=== PATIENT | male | born 1960 | race Caucasian/White ===

== ENCOUNTER 2020-11-11 09:08 | Outpatient (CLI) | payer OTHER, SELFPAY ==
--- NOTE | ~2020-11-11 | CT_ITS ---
EXAMINATION: CT lung screening DATE: 11/11/2020 09:49 INDICATION: Personal history of tobacco dependence, current smoker with 80 pack year history TECHNIQUE: Computed tomography (CT) of the chest was performed without intravenous contrast. The dose -length product (DLP) was 161.37 mGy-cm. 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 COMPARISON: None FINDINGS: There is a 9 mm nodule with central calcification in the left lower lobe on image 67, consi stent with a granuloma. An adjacent 5 mm nodule is present in the left lower lobe on image 70. There is a 3 mm nodule in the right upper lobe. There is no pleural effusion or pneumothorax. There is mild emphysema. No pathologically enlarged thoracic lymph nodes are identified. The heart size is normal. Calcified coronary artery atherosclerosis is noted. There is moderate thoracic spondylosis. IMPRESSION: 1. Lung-RADS category 2: Benign appearance or behavior. Continue annual screening with noncontrast lo w-dose chest CT in 12 months. Reviewed, dictated and finalized at location A. ERATIVE MANAGER IMPRESSION: 1. Lung-RADS category 2: Benign appearance or behavior. Continue annual screeni ng with noncontrast low-dose chest CT in 12 months.
== END 2020-11-11 09:09 | disposition home or self-care (01) ==
PROVIDERS: PCP Family Medicine; Visit Provider Family Medicine
DX: Z12.2 Encounter for screening for malignant neoplasm of respiratory organs (principal); Z87.891 Personal history of nicotine dependence
CPT/HCPCS: 71271

== ENCOUNTER → 2020-12-15 01:29 | Outpatient (CLI) | payer OTHER, SELFPAY ==
[2020-12-15 19:35] LABS: SARS-CoV-2 RNA PCR Positive
== END ==
PROVIDERS: PCP Family Medicine; Visit Provider Internal Medicine Gastroenterology
DX: U07.1 COVID-19 (principal)
CPT/HCPCS: C9803; U0003; U0005

== ENCOUNTER 2020-12-15 08:39 | Emergency (ER) | payer OTHER, SELFPAY ==
--- NOTE | ~2020-12-15 | XR_ITS ---
XR chest 2V DATE: 12/15/2020 09:10 INDICATION: Productive cough for 8 days. Smoker. TECHNIQUE: PA and lateral views COMPARISON: 11/11/2020 CT lung screening 09/28/2019 2 view chest FINDINGS: Normal heart size. No hilar or mediastinal enlargement. No pulmonary infiltrate or consolid ation, pleural effusion or pulmonary vascular congestion or pneumothorax. Mild dextroscoliosis of the thoracic spine. Degenerative spurring of the thoracic and lumbar spine. IMPRESSION: No active cardiopulmonary disease Reviewed, dictated and finalized at location A. WALKER
--- NOTE | 2020-12-15 08:53 | ED.URI ---
HPI - URI/Sore Throat General Chief Complaint: Upper Respiratory Infection Stated Complaint: Cough,Congestion Time Seen by Provider: 12/15/20 08:53 Source: patient, RN notes reviewed and old records reviewed Mode of arrival: ambulatory Limitations: no limitations History of Present Illness HPI Narrative: 60-year-old male presents to [facility] with a cough x8 days. States has been a yellow productive cough. Patient has COPD, history of pneumonia, history of bronchitis. Patient states that he is supposed to have a colonoscopy in a couple of days and would like to make sure that he does not have a pneumonia. Denies fevers. Has had some right-sided rib pain with coughing. Was Covid tested this morning. Related Data Allergies Allergy/AdvReac Type Severity Reaction Status Date / Time No Known Allergies Allergy Mild Verified 12/15/20 08:59 Review of Systems Review of Systems: Narrative: CONSTITUTIONAL: Denies fever, chills, or sweats. EYES: Denies visual changes, redness, or discharge. ENT: Denies rhinorrhea, congestion, sore throat, or otalgia. CARDIOVASCULAR: Denies chest pain, palpitations, or edema. RESPIRATORY: Reports cough or dyspnea. GASTROINTESTINAL: Denies abdominal pain, nausea, vomiting, or diarrhea. GENITOURINARY: Denies dysuria or hematuria. SKIN: Denies rash or itching. MUSCULOSKELETAL: Denies back pain, joint pain, or myalgia. NEUROLOGIC: Denies headache, numbness, or weakness. PSYCHIATRIC: Denies anxiety or depression. All other systems reviewed are negative, except as documented in HPI. [facility] Past Medical History Medical History Dyslipidemia Erectile dysfunction GERD (gastroesophageal reflux disease) Hypogonadism EDIE (obstructive sleep apnea) Prediabetes Sleep apnea Testicular hypofunction Surgical History Surgical History History of esophageal dilatation 2009 Family History Family History Other Carcinoma of colon Family history of coronary artery disease Social History Social History Smoking packs per day: 2 Smoking cigarettes per day: 40.0 Years smoked: 40 Smoking pack-years: 80.00 Smoking status: Heavy tobacco smoker Tobacco type: cigarettes Second hand tobacco smoke exposure: No Alcohol intake: current Drinks per week: 40 Substance use: never Substance use type: does not use Gender identity (if verbalized by the patient): Male Spiritual care concerns: No Comments At the time of my signature, I reviewed and agree with the nursing past medical, surgical, social, and family history. There is no relevant family history pertinent to the patient complaint. Exam Narrative: Exam Narrative: GENERAL: This is a well-nourished, well-developed patient, in no apparent distress. HEAD: normocephalic, atraumatic. EYES: PERRL. Sclera clear/white. Vision is grossly intact. EARS: External ears normal, auditory canals clear and without drainage, TMs normal without perforation. Hearing grossly intact. NOSE: External nose normal with no obvious nasal discharge, nares without redness, no rhinorrhea. THROAT: Mucous membranes moist, posterior pharynx clear. NECK: Neck supple, non-tender without lymphadenopathy, masses or thyromegaly. CARDIOVASCULAR: Regular rate and rhythm without murmurs, gallops, or rubs. RESPIRATORY: Breath sounds equal bilaterally. No wheezes, rales. Right lower rhonchi, After a strong cough. GASTROINTESTINAL: Abdomen soft, non-tender, nondistended. SKIN: warm, intact with no suspicious lesions or rash, good texture and turgor. NEURO: awake, alert, and oriented to person, place and time. There were no obvious focal neurologic abnormalities. EXTREMITIES: No clubbing, cyanosis, or edema. No joint tenderness, effusion, or edema noted. BACK: Nontender without deformity.
[2020-12-15 08:58] VITALS: BP 134/81; PULSE 64; RESP 16; TEMP 36.3; O2SAT 98
== END 2020-12-15 09:36 | disposition home or self-care (01) ==
PROVIDERS: Emergency Provider Nurse Practitioner
DX: J06.9 Acute upper respiratory infection, unspecified (principal); J40 Bronchitis, not specified as acute or chronic; F17.210 Nicotine dependence, cigarettes, uncomplicated; E78.5 Hyperlipidemia, unspecified; K21.9 Gastro-esophageal reflux disease without esophagitis; G47.33 Obstructive sleep apnea (adult) (pediatric); R73.03 Prediabetes
CPT/HCPCS: 71046; 99213; C9803; G0463; U0003; U0005

== ENCOUNTER 2021-01-22 01:24 | Day surgery (SDC) | payer OTHER, SELFPAY ==
[2020-11-21 13:30] VITALS: BMI 29.2
[2021-01-08 10:25] VITALS: BMI 29.3
[2021-01-22 06:26] VITALS: BP 111/82; PULSE 56; RESP 18; TEMP 36.4; O2SAT 96; BMI 29.8
[2021-01-22] MEDS: LACTATED RINGERS 1,000 ML 150 ML IV CONT (06:36)
--- NOTE | 2021-01-22 07:22 | WPDANESEPPF ---
Anes - Initial Pre Proc Eval Procedure: Operation Date: 01/22/21 07:30 Proposed Procedures p Screening Colonoscopy - Eulalio Villavicencio DO Date/Time: 01/22/21 07:22 Surgeon: Eulalio Villavicencio DO Pre Op Diagnosis: Neoplasm Screening Patient Data Age: 60 Gender: M Height: 5 ft 11 in Weight: 97.1 kg Last Vital Signs Temp 97.6 F 01/22/21 06:26 Pulse 56 L 01/22/21 06:26 Resp 18 01/22/21 06:26 BP 111/82 01/22/21 06:26 Pulse Ox 96 01/22/21 06:26 Allergies Allergy/AdvReac Type Severity Reaction Status Date / Time No Known Allergies Allergy Mild Verified 01/22/21 06:25 Home Medications Medication Instructions Recorded Confirmed Type tadalafil 20 mg tablet 20 mg PO DAILY PRN #10 tablet 11/06/20 01/08/21 Rx atorvastatin 20 mg tablet 20 mg PO QPM #90 tablet 11/13/20 01/08/21 Rx albuterol sulfate 2 puff INHALATION QID PRN #6.7 g 12/15/20 01/08/21 Rx Patient hx anesthesia problems: none Family hx anesthesia problems: none PMFSH Past Medical History Medical History Dyslipidemia Erectile dysfunction GERD (gastroesophageal reflux disease) Hypogonadism EDIE (obstructive sleep apnea) Prediabetes Sleep apnea Testicular hypofunction Surgical History Surgical History History of esophageal dilatation 2009 Family History Family History Other Carcinoma of colon Family history of coronary artery disease Social History Social History Smoking packs per day: 2 Smoking cigarettes per day: 40.0 Years smoked: 40 Smoking pack-years: 80.00 Smoking status: Current every day smoker Tobacco type: cigarettes Second hand tobacco smoke exposure: No Alcohol intake: current Drinks per week: 40 Substance use: never Substance use type: does not use Living arrangements: alone Gender identity (if verbalized by the patient): Male Spiritual care concerns: No Anes - Eval Final PreProcedure Day of Procedure 01/22/21 07:22 Patient weight: obese Heart: regular rate and rhythm Lungs: clear to auscultation Airway: Mallampati scale class II Neurological: alert and oriented Last oral intake: >/= 8 hours ASA classification: III Emergent: no Anesthetic plan: proceed Anesthesia type and monitoring: general GIVS and standard monitoring Informed Consent: The patient's anesthetic plan and its attendant risks and benefits were discussed with the patient/family/POA. Questions were solicited and answers provided to the satisfaction of the patient/family/POA.
--- NOTE | 2021-01-22 07:31 | P.CONGI_ITS ---
GI Consult Note Consult date/time: 01/22/21 07:31 HPI: Reason for visit is colonoscopy. This very pleasant gentleman seen in consultation at request the primary physician. Impression: Screening and surveillance colonoscopy. The patient has a history of hyperplastic colon polyps. EGD. HLD. Hypo testosterone is an. EDIE. Pre diabetes. Obesity. GERD. Recommendation: Colonoscopy. History: This very pleasant gentleman has history of reflux disease and hyperp lastic colon polyps. He is here for screening and surveillance colonoscopy. Does complain of occasional dysphagia. He is here for screening colonoscopy. Physical examination: General: very pleasant patient in no acute distress. HEENT: Head was normocephalic sclerae is clear mouth without masses neck was supple. Heart: Rate rhythm regular without S3 or S4. Lungs: CTA. Abdomen: Soft with no guarding or rigidity. Bowel sounds were active. Neurologic: Cranial nerves 2 through 12 intact. No focal defects. No clonus. Musculoskeletal system: Revealed no joint tenderness or swelling no muscle atrophy. Extremities: Reveal no significant edema. Skin: Warm and dry with normal turgor. Mental status: intact. Patient is alert and oriented. Review of Systems Review of Systems: All systems reviewed & are unremarkable except as noted in HPI and below PMFSH Past Medical History Medical History Dyslipidemia Erectile dysfunction GERD (gastroesophageal reflux disease) Hypogonadism EDIE (obstructive sleep apnea) Prediabetes Sleep apnea Testicular hypofunction Surgical History Surgical History History of esophageal dilatation 2009 Family History Family History Other Carcinoma of colon Family history of coronary artery disease Social History Social History Smoking packs per day: 2 Smoking cigarettes per day: 40.0 Years smoked: 40 Smoking pack-years: 80.00 Smoking status: Current every day smoker Tobacco type: cigarettes Second hand tobacco smoke exposure: No Alcohol intake: current Drinks per week: 40 Substance use: never Substance use type: does not use Living arrangements: alone Gender identity (if verbalized by the patient): Male Spiritual care concerns: No Meds Home Medications and Allergies Home Medications Medication Instructions Recorded Confirmed Type tadalafil 20 mg tablet 20 mg PO DAILY PRN #10 tablet 11/06/20 01/08/21 Rx atorvastatin 20 mg tablet 20 mg PO QPM #90 tablet 11/13/20 01/08/21 Rx albuterol sulfate 2 puff INHALATION QID PRN #6.7 g 12/15/20 01/08/21 Rx Allergies Allergy/AdvReac Type Severity Reaction Status Date / Time No Known Allergies Allergy Mild Verified 01/22/21 06:25 Vital Signs Vital Signs - 24 hr 01/22/21 06:26 Temperature 36.4 C Pulse Rate 56 L Respiratory Rate 18 Blood Pressure 111/82 Pulse Oximetry 96
[2021-01-22 07:53] VITALS: BP 104/60; PULSE 52; RESP 13; O2SAT 96
[2021-01-22 08:03] VITALS: BP 109/69; PULSE 54; RESP 13; O2SAT 99
[2021-01-22 08:13] VITALS: BP 124/78; PULSE 52; RESP 13; O2SAT 98
== END 2021-01-22 08:23 | disposition home or self-care (01) ==
PROVIDERS: Visit Provider Internal Medicine Gastroenterology
PROC: 0DJD8ZZ Inspection of Lower Intestinal Tract, Via Natural or Artificial Opening Endoscopic (ICD-10-PCS; CPT 45378; principal; 2021-01-22 07:30)
DX: Z12.11 Encounter for screening for malignant neoplasm of colon (principal); K63.5 Polyp of colon; K64.8 Other hemorrhoids; E78.5 Hyperlipidemia, unspecified; G47.33 Obstructive sleep apnea (adult) (pediatric); R73.03 Prediabetes; K21.9 Gastro-esophageal reflux disease without esophagitis; E29.1 Testicular hypofunction; E66.9 Obesity, unspecified; Z68.29 Body mass index [BMI] 29.0-29.9, adult; F17.210 Nicotine dependence, cigarettes, uncomplicated
CPT/HCPCS: 45380; 88305; J2704; J7120

== ENCOUNTER → 2021-03-16 01:19 | Outpatient (CLI) | payer OTHER, SELFPAY ==
[2021-03-16 18:48] LABS: SARS-CoV-2 RNA PCR Negative
== END ==
PROVIDERS: PCP Family Medicine; Visit Provider Internal Medicine Gastroenterology
DX: Z01.812 Encounter for preprocedural laboratory examination (principal); Z20.822 Contact with and (suspected) exposure to COVID-19
CPT/HCPCS: C9803; U0003; U0005

== ENCOUNTER 2021-03-19 01:17 | Day surgery (SDC) | payer OTHER, SELFPAY ==
[2021-03-11 15:24] VITALS: BMI 30.7
[2021-03-19] MEDS: LACTATED RINGERS 1,000 ML 150 ML IV CONT (07:57)
[2021-03-19 07:59] VITALS: BP 119/69; PULSE 55; RESP 18; TEMP 35.9; O2SAT 98; BMI 30.7
--- NOTE | 2021-03-19 08:42 | P.PNAN_ITS ---
Anes - Initial Pre Proc Eval Procedure: Operation Date: 03/19/21 09:00 Proposed Procedures p Esophagogastroduodenoscopy - Eulalio Villavicencio DO Date/Time: 03/19/21 08:42 Surgeon: Eulalio Villavicencio DO Pre Op Diagnosis: gerd, dysphagia Patient Data Age: 61 Gender: M Height: 5 ft 11 in Weight: 100 kg Last Vital Signs Temp 96.6 F L 03/19/21 07:59 Pulse 55 L 03/19/21 07:59 Resp 18 03/19/21 07:59 BP 119/69 03/19/21 07:59 Pulse Ox 98 03/19/21 07:59 Allergies Allergy/AdvReac Type Severity Reaction Status Date / Time No Known Allergies Allergy Mild Verified 03/19/21 07:58 Home Medications Medication Instructions Recorded Confirmed Type tadalafil 20 mg tablet 20 mg PO DAILY PRN #10 tablet 11/06/20 03/11/21 Rx atorvastatin 20 mg tablet 20 mg PO QPM #90 tablet 11/13/20 03/11/21 Rx albuterol sulfate 2 puff INHALATION QID PRN #6.7 g 12/15/20 03/11/21 Rx Patient hx anesthesia problems: none Family hx anesthesia problems: none PMFSH Past Medical History Medical History Dyslipidemia Erectile dysfunction GERD (gastroesophageal reflux disease) Hypogonadism EDIE (obstructive sleep apnea) Prediabetes Sleep apnea Testicular hypofunction Surgical History Surgical History History of esophageal dilatation 2009 Family History Family History Other Carcinoma of colon Family history of coronary artery disease Social History Social History Smoking packs per day: 2 Smoking cigarettes per day: 40.0 Years smoked: 40 Smoking pack-years: 80.00 Smoking status: Current every day smoker Tobacco type: cigarettes Second hand tobacco smoke exposure: No Alcohol intake: current Drinks per week: 12 Substance use: never Substance use type: does not use Living arrangements: with family Gender identity (if verbalized by the patient): Male Spiritual care concerns: No Anes - Eval Final PreProcedure Day of Procedure 03/19/21 08:42 Patient weight: obese Heart: regular rate and rhythm Lungs: clear to auscultation Airway: Mallampati scale class III Neurological: alert and oriented Last oral intake: >/= 8 hours ASA classification: III Emergent: no Anesthetic plan: proceed Anesthesia type and monitoring: general GIVS and standard monitoring Informed Consent: The patient's anesthetic plan and its attendant risks and b enefits were discussed with the patient/family/POA. Questions were solicited and answers provided to the satisfaction of the patient/family/POA.
--- NOTE | 2021-03-19 08:48 | WPDGICN ---
GI Consult Note Consult date/time: 03/19/21 08:48 HPI: Reason for visit is EGD. This very pleasant gentleman seen consultation request of the family physician. Impression: GERD with dysphagia. Evaluate for underlying ring or stricture. may consider eosinophilic esophagitis. HLD. EDIE. COPD. Tobacco abuse. Hypogonadism. EGD. Recommendation: EGD. Patient due for colonoscopy. History: This very pleasant gentleman is history reflux disease. Previous biopsies revealed possibly eosinophilic esophagitis. Patient's denies any further indigestion, heartburn, nausea, vomiting or hematemesis. He is having recurrent dysphagia to solid foods. NSAID use is denied. Hematochezia, melena Andacholic stools are denied. Physical examination: General: very pleasant patient in no acute distress. HEENT: Head was normocephalic sclerae is clear mouth without masses neck was supple. Heart: Rate rhythm regular without S3 or S4. Lungs: Decreased breath sounds bilaterally. Abdomen: Soft with no guarding or rigidity. Bowel sounds were active. Neurologic: Cranial nerves 2 through 12 intact. No focal defects. No clonus. Musculoskeletal system: Revealed no joint tenderness or swelling no muscle atrophy. Extremities: Reveal no significant edema. Skin: Warm and dry with normal turgor. Mental status: intact. Patient is alert and oriented. Review of Systems Review of Systems: All systems reviewed & are unremarkable except as noted in HPI and below PMFSH Past Medical History Medical History Dyslipidemia Erectile dysfunction GERD (gastroesophageal reflux disease) Hypogonadism EDIE (obstructive sleep apnea) Prediabetes Sleep apnea Testicular hypofunction Surgical History Surgical History History of esophageal dilatation 2009 Family History Family History Other Carcinoma of colon Family history of coronary artery disease Social History Social History Smoking packs per day: 2 Smoking cigarettes per day: 40.0 Years smoked: 40 Smoking pack-years: 80.00 Smoking status: Current every day smoker Tobacco type: cigarettes Second hand tobacco smoke exposure: No Alcohol intake: current Drinks per week: 12 Substance use: never Substance use type: does not use Living arrangements: with family Gender identity (if verbalized by the patient): Male Spiritual care concerns: No Meds Home Medications and Allergies Home Medications Medication Instructions Recorded Confirmed Type tadalafil 20 mg tablet 20 mg PO DAILY PRN #10 tablet 11/06/20 03/11/21 Rx atorvastatin 20 mg tablet 20 mg PO QPM #90 tablet 11/13/20 03/11/21 Rx albuterol sulfate 2 puff INHALATION QID PRN #6.7 g 12/15/20 03/11/21 Rx Allergies Allergy/AdvReac Type Severity Reaction Status Date / Time No Known Allergies Allergy Mild Verified 03/19/21 07:58 Vital Signs Vital Signs - 24 hr 03/19/21 07:59 Temperature 35.9 C L Pulse Rate 55 L Respiratory Rate 18 Blood Pressure 119/69 Pulse Oximetry 98
[2021-03-19 10:09] VITALS: BP 115/72; PULSE 45; RESP 19; O2SAT 98
[2021-03-19 10:19] VITALS: BP 102/79; PULSE 47; RESP 18; O2SAT 100
[2021-03-19 10:27] VITALS: BP 156/73; PULSE 56; RESP 19; O2SAT 100
== END 2021-03-19 10:45 | disposition home or self-care (01) ==
PROVIDERS: PCP Family Medicine; Visit Provider Internal Medicine Gastroenterology
PROC: 0DJ08ZZ Inspection of Upper Intestinal Tract, Via Natural or Artificial Opening Endoscopic (ICD-10-PCS; CPT 43235; principal; 2021-03-19 09:00)
DX: K21.00 Gastro-esophageal reflux disease with esophagitis, without bleeding (principal); K22.2 Esophageal obstruction; K29.50 Unspecified chronic gastritis without bleeding; E78.5 Hyperlipidemia, unspecified; G47.33 Obstructive sleep apnea (adult) (pediatric); J44.9 Chronic obstructive pulmonary disease, unspecified; R73.03 Prediabetes; F17.210 Nicotine dependence, cigarettes, uncomplicated; Z79.51 Long term (current) use of inhaled steroids
CPT/HCPCS: 43239; 43249; 87081; 88305; 88313; C1726; C9803; J2704; J7120; U0003; U0005

== ENCOUNTER → 2021-03-30 01:40 | Outpatient (CLI) | payer OTHER, SELFPAY ==
[2021-03-30 17:04] LABS: SARS-CoV-2 RNA PCR Negative
== END ==
PROVIDERS: PCP Family Medicine; Visit Provider Internal Medicine Gastroenterology
DX: Z01.812 Encounter for preprocedural laboratory examination (principal); Z20.822 Contact with and (suspected) exposure to COVID-19
CPT/HCPCS: C9803; U0003; U0005

== ENCOUNTER 2021-04-02 01:49 | Day surgery (SDC) | payer OTHER, SELFPAY ==
[2021-03-27 12:52] VITALS: BMI 30.7
[2021-04-02 11:39] VITALS: BP 118/56; PULSE 57; RESP 18; TEMP 36.2; O2SAT 97; BMI 30.7
[2021-04-02] MEDS: LACTATED RINGERS 1,000 ML 150 ML IV CONT (11:46)
--- NOTE | 2021-04-02 12:27 | WPDANESEPPF ---
Anes - Initial Pre Proc Eval Procedure: Operation Date: 04/02/21 13:00 Proposed Procedures p Esophagogastroduodenoscopy - Eulalio Villavicencio DO Date/Time: 04/02/21 12:27 Surgeon: Eulalio Villavicencio DO Pre Op Diagnosis: esophageal stricture Patient Data Age: 61 Gender: M Height: 5 ft 11 in Weight: 99.8 kg Last Vital Signs Temp 97.1 F L 04/02/21 11:39 Pulse 57 L 04/02/21 11:39 Resp 18 04/02/21 11:39 BP 118/56 L 04/02/21 11:39 Pulse Ox 97 04/02/21 11:39 Allergies Allergy/AdvReac Type Severity Reaction Status Date / Time No Known Allergies Allergy Mild Verified 04/02/21 11:38 Home Medications Medication Instructions Recorded Confirmed Type omeprazole 40 mg PO DAILY 03/27/21 03/27/21 History Patient hx anesthesia problems: none Family hx anesthesia problems: none PMFSH Past Medical History Medical History Dyslipidemia Erectile dysfunction GERD (gastroesophageal reflux disease) Hypogonadism EDIE (obstructive sleep apnea) Prediabetes Sleep apnea Testicular hypofunction Surgical History Surgical History History of esophageal dilatation 2009 Family History Family History Other Carcinoma of colon Family history of coronary artery disease Social History Social History Smoking packs per day: 2 Smoking cigarettes per day: 40.0 Years smoked: 40 Smoking pack-years: 80.00 Smoking status: Current every day smoker Tobacco type: cigarettes Second hand tobacco smoke exposure: No Alcohol intake: current Drinks per week: 12 Substance use: never Substance use type: does not use Living arrangements: with family Gender identity (if verbalized by the patient): Male Spiritual care concerns: No Anes - Eval Final PreProcedure Day of Procedure 04/02/21 12:27 Patient weight: obese Heart: regular rate and rhythm Lungs: clear to auscultation Airway: Mallampati scale class II Neurological: alert and oriented Last oral intake: >/= 8 hours ASA classification: III Emergent: no Anesthetic plan: proceed Anesthesia type and monitoring: general GIVS and standard monitoring Informed Consent: The patient's anesthetic plan and its attendant risks and benefits were discussed with the patient/family/POA. Questions were solicited and answers provided to the satisfaction of the patient/family/POA.
--- NOTE | 2021-04-02 12:49 | WPDHPUPDATE1 ---
History and Physical Update Update Date/Time: 04/02/21 12:49 History and Physical has been reviewed, including an updated exam of the patient. There are NO changes in the patient's condition. Risks, benefits, and alternatives have been discussed and questions answered. Patient agrees to proceed with procedure.
[2021-04-02 13:05] VITALS: BP 127/75; PULSE 62; RESP 16; O2SAT 96
[2021-04-02 13:15] VITALS: BP 137/80; PULSE 61; RESP 24; O2SAT 96
[2021-04-02 13:25] VITALS: BP 130/87; PULSE 53; RESP 25; O2SAT 98
== END 2021-04-02 13:30 | disposition home or self-care (01) ==
PROVIDERS: PCP Family Medicine; Visit Provider Internal Medicine Gastroenterology
PROC: 0DJ08ZZ Inspection of Upper Intestinal Tract, Via Natural or Artificial Opening Endoscopic (ICD-10-PCS; CPT 43235; principal; 2021-04-02 13:00)
DX: K22.2 Esophageal obstruction (principal); Z87.11 Personal history of peptic ulcer disease; K21.9 Gastro-esophageal reflux disease without esophagitis; E78.5 Hyperlipidemia, unspecified; G47.33 Obstructive sleep apnea (adult) (pediatric); R73.03 Prediabetes; F17.210 Nicotine dependence, cigarettes, uncomplicated; E66.9 Obesity, unspecified; Z68.30 Body mass index [BMI] 30.0-30.9, adult
CPT/HCPCS: 43249; C1726; C9803; J2704; J7120; U0003; U0005

== ENCOUNTER 2021-07-25 08:02 | Emergency (ER) | payer OTHER, SELFPAY ==
--- NOTE | ~2021-07-25 | XR_ITS ---
EXAMINATION: XR chest 2V EXAM DATE: 07/25/2021 08:58 INDICATION: Prod cough x 3 days. TECHNIQUE: Frontal and lateral projections of the chest obtained and reviewed. Comparison is made to prior examination from 12/15/2020. FINDINGS: The lungs are clear. There are no pleural effusions. The cardiomediastinal silhouette is within normal limits. There is no pneumothorax suspected. The bones and soft tissues are unremarkab le. IMPRESSION: No acute cardiopulmonary findings. Reviewed, dictated and finalized at location A.
--- NOTE | 2021-07-25 08:04 | ED.GENADULT ---
HPI - General Adult General Chief complaint: Upper Respiratory Infection Stated complaint: cough Time Seen by Provider: 07/25/21 08:04 Source: patient Mode of arrival: ambulatory Limitations: no limitations History of Present Illness HPI narrative: 61-year-old male patient presents to the [facility] with complaints of a cough, shortness of breath, fatigue and some chest pain for the past 3 days. Patient states that he is not vaccinated against Covid. Patient states he was diagnosed with COVID-19 in December 2019. Patient states he has not been to the doctor in a couple of years. Patient is an active smoker. Denies being around anybody with Covid that he is aware of. Patient states he has been taking [id number] Mucinex for his symptoms. Denies getting a flu shot yet this year. Patient states he typically does not get flu shots. Related Data Allergies Allergy/AdvReac Type Severity Reaction Status Date / Time No Known Allergies Allergy Mild Verified 07/25/21 08:23 Review of Systems Review of Systems: CONSTITUTIONAL: Denies fever, chills, or sweats. EYES: Denies visual changes, redness, or discharge. ENT: Denies rhinorrhea, congestion, sore throat, or otalgia. CARDIOVASCULAR: Positive chest pain, denies palpitations, or edema. RESPIRATORY: Positive productive cough with dyspnea. GASTROINTESTINAL: Denies abdominal pain, nausea, vomiting, or diarrhea. GENITOURINARY: Denies dysuria or hematuria. SKIN: Denies rash or itching. MUSCULOSKELETAL: Denies back pain, joint pain, or myalgia. NEUROLOGIC: Denies headache, numbness, or weakness. PSYCHIATRIC: Denies anxiety or depression. [facility] Past Medical History Medical History (Updated 07/25/21 @ 09:10 by SHORTY Sage) COVID-19 virus infection December 2019 Dyslipidemia Erectile dysfunction GERD (gastroesophageal reflux disease) Hypogonadism EDIE (obstructive sleep apnea) Prediabetes Sleep apnea Testicular hypofunction Surgical History Surgical History History of esophageal dilatation 2009 Family History Family History Other Carcinoma of colon Family history of coronary artery disease Social History Social History Smoking packs per day: 2 Smoking cigarettes per day: 40.0 Years smoked: 40 Smoking pack-years: 80.00 Smoking status: Current every day smoker Tobacco type: cigarettes Second hand tobacco smoke exposure: No Alcohol intake: current Drinks per week: 12 Alcohol use details: 8-10 beers a week Substance use: never Substance use type: does not use Gender identity (if verbalized by the patient): Male Spiritual care concerns: No Comments At the time of my signature I agree with nursing past medical history, surgical, social, and family history. There is no relevant family history pertinent to the presenting complaint. Exam Narrative: GENERAL: Well-appearing, well-nourished, and in no acute distress. HEAD: Normocephalic, atraumatic. EYES: PERRLA and EOMI. ENT: Nares clear, no rhinorrhea or epistaxis. Mucous membranes moist. NECK: Supple. No lymphadenopathy CHEST: Clear to auscultation. No respiratory distress. HEART: Regular rate and rhythm. No murmur heard. Normal peripheral pulses. ABDOMEN: Soft, nontender, nondistended, normal active bowel sounds. EXTREMITIES: Normal range of motion. No edema. SKIN: Warm, dry, no rash. NEURO: No focal deficits. Alert and oriented x3. Course Reevaluation(s) Reevaluation #1: Reviewed plan of care with patient. Discussed with patient that flu and COVID were negative and chest x-ray and ECG was negative. Discussed with patient that we will go ahead and discharge him home with an inhaler, oral steroids and a daily antihistamine to help with the coughing and chest pain. Discussed with patient if his symptoms get continuingly
[2021-07-25 08:10] VITALS: BP 122/81; PULSE 58; RESP 16; TEMP 36.8; O2SAT 99
--- NOTE | 2021-07-25 08:32 | ECG_ITS ---
Measurements Intervals [place] Rate: 51 P: 69 WV: 171 QRS: 59 QRSD: 98 T: 61 QT: 414 QTc: 382 Interpretive Statements SINUS BRADYCARDIA INCOMPLETE RIGHT BUNDLE BRANCH BLOCK BORDERLINE ECG Electronically Signed On 07-25-2021 14:15:05 CDT by Dell Macias D.O.
== END 2021-07-25 09:23 | disposition home or self-care (01) ==
PROVIDERS: Emergency Provider Nurse Practitioner Family
DX: J06.9 Acute upper respiratory infection, unspecified (principal); F17.210 Nicotine dependence, cigarettes, uncomplicated; Z20.822 Contact with and (suspected) exposure to COVID-19
CPT/HCPCS: 71046; 87426; 87804; 93005; 99213; C9803; G0463

== ENCOUNTER 2021-11-02 09:56 | Emergency (ER) | payer OTHER, SELFPAY ==
[2021-11-02 10:05] VITALS: BP 131/70; PULSE 73; RESP 16; TEMP 36.6; O2SAT 100
--- NOTE | 2021-11-02 10:41 | ED.URI ---
HPI - URI/Sore Throat General Chief Complaint: Upper Respiratory Infection Stated Complaint: Fever,Aches Time Seen by Provider: 11/02/21 10:41 Source: patient, RN notes reviewed and old records reviewed Mode of arrival: ambulatory Limitations: no limitations History of Present Illness HPI Narrative: 61-year-old male presents to the [facility] with body aches, chills and has felt feverish since waking up yesterday morning. Patient is not flu nor Covid vaccinated. Related Data Home Medications Medication Instructions Recorded Confirmed No Home Medications 11/02/21 11/02/21 Allergies Allergy/AdvReac Type Severity Reaction Status Date / Time No Known Allergies Allergy Mild Verified 07/25/21 08:23 Review of Systems Review of Systems: All systems reviewed & are unremarkable except as noted in HPI and below Constitutional: Constitutional: Reports as per HPI, Reports chills, Reports fatigue and Reports fever(s) Eyes: Eyes: Reports no additional eye complaints ENT: Reports system reviewed and no additional complaints, except as documented Cardiovascular: Cardiovascular: Reports no additional cardiovascular complaints and Denies chest pain Respiratory: Respiratory: Reports as per HPI and Reports cough Gastrointestinal: Gastrointestinal: Reports no additional gastrointestinal complaints, Denies abdominal pain, Denies nausea and Denies vomiting Genitourinary: Genitourinary: Reports no additional male genitourinary complaints Musculoskeletal: Musculoskeletal: Reports no additional musculoskeletal complaints Integumentary/Breasts: Skin/Breast: Reports system reviewed and no additional complaints, except as docu Neurologic: Reports system reviewed and no additional complaints, except as documented Psychiatric: Psychiatric: Reports no additional psychiatric complaints Allergic/Immunologic: Allergic/Immunologic: Reports no additional allergic/immunologic complaints [facility] Past Medical History Medical History COVID-19 virus infection December 2019 Dyslipidemia Erectile dysfunction GERD (gastroesophageal reflux disease) Hypogonadism EDIE (obstructive sleep apnea) Prediabetes Sleep apnea Testicular hypofunction Surgical History Surgical History History of esophageal dilatation 2009 Family History Family History Other Carcinoma of colon Family history of coronary artery disease Social History Social History Smoking packs per day: 2 Smoking cigarettes per day: 40.0 Years smoked: 40 Smoking pack-years: 80.00 Smoking status: Current every day smoker Tobacco type: cigarettes Second hand tobacco smoke exposure: No Alcohol intake: current Drinks per week: 12 Alcohol use details: 8-10 beers a week Substance use: never Substance use type: does not use Gender identity (if verbalized by the patient): Male Spiritual care concerns: No Comments At the time of my signature, I reviewed and agree with the nursing past medical, surgical, social, and family history. There is no relevant family history pertinent to the patient complaint. Exam Const: General: healthy appearing, no acute distress and alert Nutritional Appearance: well nourished Orientation/consciousness: patient oriented x3 Limitations: no limitations HENMT: Head: normal to inspection Ears: external ears normal, TM's normal bilaterally and EAC's normal Eyes: Conjunctivae: conjunctivae normal Pupils: Equal, round and reactive pupils present Neck: Neck: normal visual inspection, no lymphadenopathy and no meningeal signs Chest: Chest palpation & inspection: normal inspection of the chest Resp: Effort & Inspection: normal respiratory effort Auscultation: diminished lung sounds (With coarseness throughout) bilateral in the
== END 2021-11-02 11:13 | disposition home or self-care (01) ==
PROVIDERS: Emergency Provider Nurse Practitioner
DX: B34.9 Viral infection, unspecified (principal); Z20.822 Contact with and (suspected) exposure to COVID-19; F17.210 Nicotine dependence, cigarettes, uncomplicated; Z86.16 Personal history of COVID-19; E78.5 Hyperlipidemia, unspecified; K21.9 Gastro-esophageal reflux disease without esophagitis; G47.33 Obstructive sleep apnea (adult) (pediatric); R73.03 Prediabetes; G47.30 Sleep apnea, unspecified
CPT/HCPCS: 87804; 99213; G0463

== ENCOUNTER → 2021-11-03 10:00 | Outpatient (CLI) | payer OTHER, SELFPAY ==
[2021-11-03 20:10] LABS: SARS-CoV-2 RNA PCR Positive
== END ==
PROVIDERS: Visit Provider Nurse Practitioner
DX: U07.1 COVID-19 (principal)
CPT/HCPCS: C9803; U0003; U0005

== ENCOUNTER 2022-03-12 09:57 | Outpatient (CLI) | payer OTHER, SELFPAY ==
--- NOTE | ~2022-03-12 | CT_ITS ---
EXAMINATION: CT lung screening DATE: 03/12/2022 10:19 INDICATION: Personal history of nicotine dependence, current smoker with 44 pack year history TECHNIQUE: Computed tomography (CT) of the chest was performed without intravenous contrast. The dose -length product (DLP) was 190.30 mGy-cm. Automated exposure control and iterative reconstruction tech [employer] were employed. COMPARISON: 11/11/2020 FINDINGS: There is a 3 mm nodule of the right upper lobe. There is mild emphysema. A calcified nodule of the left lower lobe and an adjacent 5 mm nodule are stable. No new pulmonary nodules are identifi ed. The lungs are free of acute opacities. There is no pleural effusion or pneumothorax. No pathologi cody enlarged thoracic lymph nodes are identified. The heart size is normal. Calcified coronary da ry atherosclerosis is noted. There is moderate thoracic spondylosis. Two IMPRESSION: 1. Lung-RADS category 2: Benign appearance or behavior. Continue annual screening with noncontrast lo w-dose chest CT in 12 months. Reviewed, dictated and finalized at location A. IMPRESSION: 1. Lung-RADS category 2: Benign appearance or behavior. Continue annual screeni ng with noncontrast low-dose chest CT in 12 months.
== END 2022-03-12 09:58 | disposition home or self-care (01) ==
PROVIDERS: PCP Family Medicine; Visit Provider Family Medicine
DX: Z12.2 Encounter for screening for malignant neoplasm of respiratory organs (principal)
CPT/HCPCS: 71271

== ENCOUNTER 2022-10-05 13:10 | Outpatient (CLI) | payer OTHER, SELFPAY ==
--- NOTE | ~2022-10-05 | CT_ITS ---
EXAMINATION: CT lung screening DATE: 10/05/2022 13:32 INDICATION: Personal history of tobacco dependence TECHNIQUE: Computed tomography (CT) of the chest was performed without intravenous contrast. The dose -length product was 162.68 mGy-cm. Automated exposure control and iterative reconstruction technique were employed. COMPARISON: CT dated 03/12/2022 FINDINGS: No thoracic lymphadenopathy. No significant pleural or pericardial effusion. There is ather osclerosis of the aorta and coronary arteries. The upper abdomen is unremarkable. There is a nonsolid nodule in the right upper lobe measuring 9 mm. There is a calcified granuloma in the left lower lobe , unchanged. There is a stable 4 mm left lower lobe nodule. No endobronchial lesions. No acute osseou s abnormality. Moderate thoracic spondylosis. IMPRESSION: 1. Lung-RADS category 2: Benign appearance or behavior. Continue annual screening with noncontrast lo w-dose chest CT in 12 months. Reviewed, dictated and finalized at location A. NO SHIFT MANAGER IMPRESSION: 1. Lung-RADS category 2: Benign appearance or behavior. Continue annual screeni ng with noncontrast low-dose chest CT in 12 months.
== END 2022-10-05 13:11 | disposition home or self-care (01) ==
PROVIDERS: PCP Family Medicine; Visit Provider Family Medicine
DX: Z12.2 Encounter for screening for malignant neoplasm of respiratory organs (principal); F17.210 Nicotine dependence, cigarettes, uncomplicated
CPT/HCPCS: 71271

== ENCOUNTER 2022-10-29 08:38 | Emergency (ER) | payer OTHER, SELFPAY ==
--- NOTE | ~2022-10-29 | XR_ITS ---
EXAMINATION: XR chest 2V DATE: 10/29/2022 09:31 INDICATION: Productive cough TECHNIQUE: Frontal and lateral views of the chest are obtained COMPARISON: 07/25/2021 FINDINGS: The lungs are free of acute opacities. No pleural effusion or pneumothorax. The cardiomedia stinal silhouette is normal. There is moderate thoracic spondylosis. IMPRESSION: 1. No acute cardiopulmonary abnormality. Reviewed, dictated and finalized at location B. ICIAN ANESTHESIOLOGIST
[2022-10-29 08:50] VITALS: BP 123/64; PULSE 67; RESP 16; TEMP 35.6; O2SAT 98
--- NOTE | 2022-10-29 09:09 | ED.URI ---
HPI - URI/Sore Throat General Chief Complaint: Upper Respiratory Infection Stated Complaint: Cough Time Seen by Provider: 10/29/22 09:09 Source: patient Mode of arrival: ambulatory Limitations: no limitations History of Present Illness HPI Narrative: 62-year-old male presents with complaint of cough, chest congestion for 2 weeks. Reports shortness of breath with exertion. Hot and cold chills starting yesterday. Denies nausea vomiting diarrhea. Is using [id number] cough medications to treat his symptoms. Is concerned for pneumonia. All systems reviewed and negative except as noted above. Related Data Allergies Allergy/AdvReac Type Severity Reaction Status Date / Time No Known Allergies Allergy Mild Verified 10/29/22 08:40 Review of Systems Review of Systems: CONSTITUTIONAL: Denies fever. Reports chills, or sweats. EYES: Denies visual changes, redness, or discharge. ENT: Denies rhinorrhea, congestion, sore throat, or otalgia. CARDIOVASCULAR: Denies chest pain, palpitations, or edema. RESPIRATORY: Reports cough, chest congestion and dyspnea with exertion. GASTROINTESTINAL: Denies abdominal pain, nausea, vomiting, or diarrhea. GENITOURINARY: Denies dysuria or hematuria. SKIN: Denies rash or itching. MUSCULOSKELETAL: Denies back pain, joint pain, or myalgia. NEUROLOGIC: Denies headache, numbness, or weakness. PSYCHIATRIC: Denies anxiety or depression. All other systems reviewed are negative, except as documented in HPI. [facility] Past Medical History Medical History BPH (benign prostatic hyperplasia) COVID-19 virus infection December 2019 Dyslipidemia Erectile dysfunction GERD (gastroesophageal reflux disease) Hypogonadism EDIE (obstructive sleep apnea) Prediabetes Sleep apnea Testicular hypofunction Vitamin D deficiency Surgical History Surgical History History of esophageal dilatation 2009 Family History Family History Other Carcinoma of colon Family history of coronary artery disease Social History Social History Smoking packs per day: 1 Smoking cigarettes per day: 20.0 Years smoked: 44 Smoking pack-years: 44.00 Smoking status: Current every day smoker Tobacco type: cigarettes Second hand tobacco smoke exposure: No Alcohol intake: current Drinks per week: 12 Alcohol use details: 8-10 beers a week Substance use: never Substance use type: does not use Lack of Transportation: No Lack of Food: Never True Current Housing: I Have Housing Concerned About Future Housing: No Difficulty Paying Gas/Electric Bills: No Difficulty Paying for Meds: No Currently Unemployed: No Education: High School Diploma/GED Difficulty w/ Childcare or Family Care: No Additional occupation/education comments: Self-Employed Gender identity (if verbalized by the patient): Male Spiritual care concerns: No Agree to blood products: Yes Comments At time of signature, agree with nursing past medical, surgical, social and family history. There is no relevant family history pertinent to the presenting complaint. Exam Narrative: GENERAL: This is a well-nourished, well-developed patient, in no apparent distress. HEAD: normocephalic, atraumatic. EYES: PERRL. Sclera clear/white. Vision is grossly intact. EARS: External ears normal, auditory canals clear and without drainage, TMs normal without perforation. Hearing grossly intact. NOSE: External nose normal with no obvious nasal discharge, nares without redness, no rhinorrhea. THROAT: Mucous membranes moist, posterior pharynx clear. NECK: Neck supple, non-tender without lymphadenopathy, masses or thyromegaly. CARDIOVASCULAR: Regular rate and rhythm without murmurs, gallops, or rubs. RESPIRATORY: decreas
== END 2022-10-29 09:51 | disposition home or self-care (01) ==
PROVIDERS: Emergency Provider Nurse Practitioner Family; PCP Family Medicine
DX: J20.9 Acute bronchitis, unspecified (principal); Z20.822 Contact with and (suspected) exposure to COVID-19; F17.210 Nicotine dependence, cigarettes, uncomplicated; N40.0 Benign prostatic hyperplasia without lower urinary tract symptoms; E78.5 Hyperlipidemia, unspecified; K21.9 Gastro-esophageal reflux disease without esophagitis; R73.03 Prediabetes; Z86.16 Personal history of COVID-19
CPT/HCPCS: 71046; 87426; 87804; 99213; C9803; G0463

== ENCOUNTER 2023-09-04 08:02 | Emergency (ER) | payer OTHER, SELFPAY ==
--- NOTE | ~2023-09-04 | XR_ITS ---
EXAMINATION: XR chest 2V DATE: 09/04/2023 08:26 INDICATION: Chest pain, productive cough TECHNIQUE: PA and lateral views of the chest are obtained. COMPARISON: 10/29/2022 FINDINGS: There are minimal airspace opacities in the left midlung zone. No pleural effusion or pneum othorax. The cardiomediastinal silhouette is normal. There is moderate thoracic spondylosis. IMPRESSION: 1. Minimal airspace opacities of the left midlung zone which may reflect pneumonia. Recommend appropr iate clinical therapy. Finding can be followed up at the time of lung cancer screening CT which is du e in one month. Reviewed, dictated and finalized at location F. Y LEVEL ACCOUNTING CLERK IMPRESSION: 1. Minimal airspace opacities of the left midlung zone which may reflect pneumo gentry. Recommend appropriate clinical therapy. Finding can be followed up at the time of lung cancer screening CT which is due in one month.
--- NOTE | 2023-09-04 08:05 | ED.URI ---
HPI - URI/Sore Throat General Chief Complaint: Upper Respiratory Infection Stated Complaint: cough, lungs hurt Time Seen by Provider: 09/04/23 08:04 Source: patient Mode of arrival: ambulatory Limitations: no limitations History of Present Illness HPI Narrative: Mr. Huerta is a 63-year-old male patient presenting to the clinic today with complaints of cough, scratchy throat, nasal congestion, and stating his lungs hurt x2 days. He was previously outside smoking a cigarette prior to coming into the clinic today. At least a 2 pack-a-day times 45 year smoking history. History of COPD. Cough is productive at times-starting to bring up some green phlegm. He denies any fever but has had some chills. MD elicited complaint: sore throat and nasal congestion Related Data Home Medications Medication Instructions Recorded Confirmed testosterone enanthate 75 mg/0.5 75 mg subcut WEEKLY 01/31/23 01/31/23 mL subcutaneous auto-injector (Xyosted) cholecalciferol (vitamin D3) 50 2,000 unit PO DAILY 02/08/23 mcg (2,000 unit) capsule Allergies Allergy/AdvReac Type Severity Reaction Status Date / Time No Known Allergies Allergy Mild Verified 09/04/23 08:06 Review of Systems Review of Systems: Pertinent positives per HPI. Patient denies any fever, chills, rash, headache, visual changes, dizziness, chest pain, palpitations, nausea, vomiting, diarrhea, constipation, abdominal pain, or any urinary issues. [facility] Past Medical History Medical History BPH (benign prostatic hyperplasia) COVID-19 virus infection December 2019 Dyslipidemia Erectile dysfunction GERD (gastroesophageal reflux disease) Hypogonadism EDIE (obstructive sleep apnea) Prediabetes Sleep apnea Testicular hypofunction Vitamin D deficiency Surgical History Surgical History History of esophageal dilatation 2009 Family History Family History Other Carcinoma of colon Family history of coronary artery disease Social History Social History Smoking packs per day: 1 Smoking cigarettes per day: 20.0 Years smoked: 44 Smoking pack-years: 44.00 Smoking status: Current every day smoker Tobacco type: cigarettes Second hand tobacco smoke exposure: No Alcohol intake: current Drinks per week: 12 Alcohol use details: 8-10 beers a week Substance use: never Substance use type: does not use Lack of Transportation: No Lack of Food: Never True Current Housing: I Have Housing Concerned About Future Housing: No Difficulty Paying Gas/Electric Bills: No Difficulty Paying for Meds: No Currently Unemployed: No Education: High School Diploma/GED Difficulty w/ Childcare or Family Care: No Living arrangements: alone Occupation/Education: occupation Additional occupation/education comments: Self-Employed Gender identity (if verbalized by the patient): Male Spiritual care concerns: No Agree to blood products: Yes Comments At the time of my signature, I reviewed and agree with the nursing past medical, surgical, social, and family history. There is no relevant family history pertinent to the patient complaint. Exam Narrative: General: Well-developed, well nourished, in no apparent distress Head: Normocephalic, atraumatic Eyes: Pupils equally round and reactive to light bilaterally, EOM intact, sclera and conjunctive clear, no discharge, lids normal Ears: TMs intact and clear, ear canals clear, no drainage, grossly hearing normal. Nose: Nares patent, clear discharge, no inflammation, no sinus tenderness. Mouth: Oral pharynx red without lesions or masses, good dentition, MMM. Neck: Supple, trachea midline, no enlargement of anterior or posterior cervical nodes, no thyroid mass
[2023-09-04 08:11] VITALS: BP 126/70; PULSE 63; RESP 18; TEMP 36.2; O2SAT 99
[2023-09-04 08:19] VITALS: BP 126/70; PULSE 63; RESP 18; TEMP 36.2; O2SAT 99
== END 2023-09-04 08:54 | disposition home or self-care (01) ==
PROVIDERS: Emergency Provider Nurse Practitioner Family; PCP Family Medicine
DX: J18.1 Lobar pneumonia, unspecified organism (principal); Z20.822 Contact with and (suspected) exposure to COVID-19; J44.9 Chronic obstructive pulmonary disease, unspecified; F17.210 Nicotine dependence, cigarettes, uncomplicated; N40.0 Benign prostatic hyperplasia without lower urinary tract symptoms; E78.5 Hyperlipidemia, unspecified; K21.9 Gastro-esophageal reflux disease without esophagitis; R73.03 Prediabetes; E55.9 Vitamin D deficiency, unspecified; Z86.16 Personal history of COVID-19
CPT/HCPCS: 71046; 87081; 87426; 87880; 99213; C9803; G0463

== ENCOUNTER 2023-09-21 08:20 | Emergency (ER) | payer OTHER, SELFPAY ==
--- NOTE | ~2023-09-21 | XR_ITS ---
EXAMINATION: XR chest 2V DATE: 09/21/2023 08:53 INDICATION: Dry cough TECHNIQUE: PA and lateral views of the chest are obtained. COMPARISON: 09/04/2023 FINDINGS: The lungs are free of acute opacities. Previously described airspace opacities of the left midlung zone and a straight slight improvement. No pleural effusion or pneumothorax. The cardiomedias tinal silhouette is normal. There is moderate thoracic spondylosis. IMPRESSION: 1. Improving airspace opacities of the left midlung zone, likely pneumonia. Patient due for lung canc er screening CT in one month. Reviewed, dictated and finalized at location F. NISTRATIVE FELLOW IMPRESSION: 1. Improving airspace opacities of the left midlung zone, likely pneumonia. Pat ient due for lung cancer screening CT in one month.
[2023-09-21 08:38] VITALS: BP 121/75; PULSE 75; RESP 16; TEMP 37.3; O2SAT 98
--- NOTE | 2023-09-21 08:51 | ED.URI ---
HPI - URI/Sore Throat General Chief Complaint: Upper Respiratory Infection Stated Complaint: chest congestion,right side pain Source: patient Mode of arrival: ambulatory Limitations: no limitations History of Present Illness HPI Narrative: 63 y/o male with hx COPD presented for c/o cough, scratchy throat, nasal congestion, since yesterday and right lower rib/side pain this morning. States these are the same symptoms he presented with when diagnosed with pneumonia 3 weeks ago. Reports he felt better after completing abx and steroids as directed. Pt is 2PPD+ smoker, x 45 years.?Cough is dry. Denies sob, wheezing, n/v/d/f or lethargy. Endorses chills. Took alkaseltzer yesterday. ? Related Data Home Medications Medication Instructions Recorded Confirmed cholecalciferol (vitamin D3) 50 2,000 unit PO DAILY 02/08/23 09/21/23 mcg (2,000 unit) capsule Allergies Allergy/AdvReac Type Severity Reaction Status Date / Time No Known Allergies Allergy Mild Verified 09/21/23 08:43 Review of Systems Review of Systems: CONSTITUTIONAL: Denies body aches, fever, chills, or sweats. EYES: Denies visual changes, redness, or discharge. ENT: reports rhinorrhea, congestion, sore throat CARDIOVASCULAR: Denies chest pain, palpitations, or edema. RESPIRATORY: Reports cough, denies sob, wheezing. GASTROINTESTINAL: Denies abdominal pain, nausea, vomiting, or diarrhea. GENITOURINARY: Denies dysuria or hematuria. SKIN: Denies rash, itching, or wounds. MUSCULOSKELETAL: Denies back pain, joint pain, or myalgia. NEUROLOGIC: Denies headache, numbness, tingling, or weakness. All systems reviewed & are unremarkable except as noted in HPI and below PMFSH Past Medical History Medical History BPH (benign prostatic hyperplasia) COVID-19 virus infection December 2019 Dyslipidemia Erectile dysfunction GERD (gastroesophageal reflux disease) Hypogonadism EDIE (obstructive sleep apnea) Prediabetes Sleep apnea Testicular hypofunction Vitamin D deficiency Surgical History Surgical History History of esophageal dilatation 2009 Family History Family History Other Carcinoma of colon Family history of coronary artery disease Social History Social History Smoking packs per day: 1 Smoking cigarettes per day: 20.0 Years smoked: 44 Smoking pack-years: 44.00 Smoking status: Current every day smoker Tobacco type: cigarettes Second hand tobacco smoke exposure: No Alcohol intake: current Drinks per week: 12 Alcohol use details: 8-10 beers a week Substance use: never Substance use type: does not use Lack of Transportation: No Lack of Food: Never True Current Housing: I Have Housing Concerned About Future Housing: No Difficulty Paying Gas/Electric Bills: No Difficulty Paying for Meds: No Currently Unemployed: No Education: High School Diploma/GED Difficulty w/ Childcare or Family Care: No Living arrangements: alone Occupation/Education: occupation Additional occupation/education comments: Self-Employed Gender identity (if verbalized by the patient): Male Spiritual care concerns: No Agree to blood products: Yes Comments At time of signature, I have reviewed and agree with nursing past medical, surgical, social and family history unless otherwise noted. Please see nursing chart for further information. There is no relevant family history pertinent to the presenting complaint Exam Narrative: GENERAL: mildly ill-appearing, in no acute distress. EYES: EOMI. No redness or drainage. Conjunctivae normal. ENT: Mucous membranes pink and moist. Mild rhinorrhea. TMs normal bilaterally. Throat normal. Uvula midline. NECK: Normal AROM. Supple. CHEST: No respiratory dis
== END 2023-09-21 09:14 | disposition home or self-care (01) ==
PROVIDERS: Emergency Provider Nurse Practitioner Family; PCP Family Medicine
DX: J06.9 Acute upper respiratory infection, unspecified (principal); J44.9 Chronic obstructive pulmonary disease, unspecified; E78.5 Hyperlipidemia, unspecified; F17.210 Nicotine dependence, cigarettes, uncomplicated; Z20.822 Contact with and (suspected) exposure to COVID-19
CPT/HCPCS: 71046; 87426; 87804; 99213; C9803; G0463

== ENCOUNTER 2024-03-24 14:22 | Emergency (ER) | payer OTHER, SELFPAY ==
--- NOTE | 2024-03-24 14:31 | ED.EYEPROB ---
HPI - Eye Problem General Chief complaint: Eye Problems Stated complaint: Right Eye Irritation Time Seen by Provider: 03/24/24 14:32 Source: patient, RN notes reviewed and old records reviewed Mode of arrival: ambulatory Limitations: no limitations History of Present Illness HPI Narrative: 64-year-old male presents to the [facility] with concerns of salt dust in his eye. Was cutting wood when he felt something in his eye. Normally wears glasses. tDap 11/06/20 per medical record Onset (ago): minute(s) Related Data Patient tetanus UTD: Yes Home Medications Medication Instructions Recorded Confirmed tadalafil 5 mg tablet 5 mg PO DAILY 02/09/24 03/24/24 Allergies Allergy/AdvReac Type Severity Reaction Status Date / Time No Known Allergies Allergy Mild Verified 03/24/24 14:25 Review of Systems Review of Systems: All systems reviewed & are unremarkable except as noted in HPI and below Constitutional: Constitutional: Reports no additional constitutional complaints Eyes: Eyes: Reports as per HPI, Reports irritation, Denies other visual disturbances and Denies eye pain ENT: Reports system reviewed and no additional complaints, except as documented Cardiovascular: Cardiovascular: Reports no additional cardiovascular complaints, Denies chest pain and Denies dyspnea Respiratory: Respiratory: Reports no additional respiratory complaints, Denies chest congestion, Denies cough and Denies dyspnea Gastrointestinal: Gastrointestinal: Reports no additional gastrointestinal complaints, Denies abdominal pain, Denies nausea and Denies vomiting Musculoskeletal: Musculoskeletal: Reports no additional musculoskeletal complaints Integumentary/Breasts: Skin/Breast: Reports system reviewed and no additional complaints, except as docu Neurologic: Reports system reviewed and no additional complaints, except as documented Psychiatric: Psychiatric: Reports no additional psychiatric complaints Allergic/Immunologic: Allergic/Immunologic: Reports no additional allergic/immunologic complaints [facility] Past Medical History Medical History BPH (benign prostatic hyperplasia) COVID-19 virus infection December 2019 Dyslipidemia Erectile dysfunction GERD (gastroesophageal reflux disease) Hypogonadism EDIE (obstructive sleep apnea) Prediabetes Sleep apnea Testicular hypofunction Vitamin D deficiency Surgical History Surgical History History of esophageal dilatation 2009 Family History Family History Other Carcinoma of colon Family history of coronary artery disease Social History Social History Smoking packs per day: 2 Smoking cigarettes per day: 40.0 Years smoked: 40 Smoking pack-years: 80.00 Smoking status: Current every day smoker Tobacco type: cigarettes Second hand tobacco smoke exposure: No Alcohol intake: current Drinks per week: 12 Alcohol use details: 8-10 beers a week Substance use: never Substance use type: does not use Lack of Transportation: No Lack of Food: Never True Current Housing: I Have Housing Concerned About Future Housing: No Difficulty Paying Gas/Electric Bills: No Difficulty Paying for Meds: No Currently Unemployed: No Education: High School Diploma/GED Difficulty w/ Childcare or Family Care: No Living arrangements: alone Occupation/Education: occupation Additional occupation/education comments: Self-Employed Gender identity (if verbalized by the patient): Male Spiritual care concerns: No Agree to blood products: Yes Comments At the time of my signature, I reviewed and agree with the nursing past medical, surgical, social, and family history. There is no relevant family history pertinent to the patient complaint. Exam Const:
[2024-03-24 14:32] VITALS: BP 111/68; PULSE 60; RESP 14; TEMP 37.1; O2SAT 98
[2024-03-24] MEDS: TETRACAINE HCL 0.5% OPHTH SOLN 4 ML BTL 1 DROP RIGHT EYE (14:38)
[2024-03-24] MEDS: FLUORESCEIN SOD 1 MG/STRIP EACH EYE (14:38)
== END 2024-03-24 15:00 | disposition home or self-care (01) ==
PROVIDERS: Emergency Provider Nurse Practitioner; PCP Family Medicine
DX: H57.8A1 Foreign body sensation, right eye (principal); F17.210 Nicotine dependence, cigarettes, uncomplicated; N40.0 Benign prostatic hyperplasia without lower urinary tract symptoms; E78.5 Hyperlipidemia, unspecified; K21.9 Gastro-esophageal reflux disease without esophagitis; R73.03 Prediabetes; Z86.16 Personal history of COVID-19
CPT/HCPCS: 99213; G0463

== ENCOUNTER 2024-05-17 14:47 | Outpatient (CLI) | payer OTHER, SELFPAY ==
--- NOTE | ~2024-05-17 | CT_ITS ---
CT Scan of the Chest without Contrast: Clinical Indication: Lung cancer screening, nicotine dependence Technique: Contiguous sections were acquired throughout the chest without intravenous contrast. Dose reduction technique was used on this scan by utilizing automated exposure control and iterative recon struction technique. The dose-length product (DLP) was 181.31 mGy-cm. COMPARISON: 10/05/2022 Findings: There is no evidence of any significant mediastinal, hilar or axillary lymphadenopathy. Coronary da ry calcifications are present. There is no evidence of pleural or pericardial effusion. There are minimal focal tree-in-bud opacities in the right upper lobe. No other pulmonary nodule seen . Images through the upper abdomen reveal no abnormalities. Impression: Lung RADS 2: Benign appearance. 12 month follow-up screen CT advised. Reviewed, dictated and finalized at [facility]. Impression: Lung RADS 2: Benign appearance. 12 month follow-up screen CT advised.
== END 2024-05-17 14:48 | disposition home or self-care (01) ==
LOC: ANHIMG 14:51
PROVIDERS: PCP Family Medicine; Visit Provider Family Medicine
DX: Z12.2 Encounter for screening for malignant neoplasm of respiratory organs (principal); F17.210 Nicotine dependence, cigarettes, uncomplicated
CPT/HCPCS: 71271

== ENCOUNTER 2025-05-27 15:45 | Emergency (ER) | payer OTHER, SELFPAY ==
[2025-05-27 15:55] VITALS: BP 124/66; PULSE 68; RESP 16; TEMP 36.4; O2SAT 99
--- NOTE | 2025-05-27 16:16 | ED.SKABFB ---
HPI - Skin/Abscess/Foreign Bdy General Chief complaint: Eye Problems Stated complaint: Eyes Irritation/Rash Time Seen by Provider: 05/27/25 16:00 Source: patient and RN notes reviewed Mode of arrival: ambulatory Limitations: no limitations History of Present Illness HPI narrative: 65-year-old male presents Express Care complaining of rash to his face proximally 2 days. Patient is doing yd work he believes he got into poison dinora or some type of poison planned on property. Since then patient reports a pruritic rash and swelling around his eyelids. Patient also reports the rash is present to his lower back and into his groin. Patient has not tried any [id number] help with symptoms. Patient denies any blurry vision, vision changes, eye pain, fevers body aches, chills, difficulty breathing, difficulty clearing secretions, nausea vomiting, or any other symptoms. Patient denies any significant past medical history. Related Data Allergies Allergy/AdvReac Type Severity Reaction Status Date / Time No Known Allergies Allergy Mild Verified 05/27/25 15:50 Review of Systems Review of Systems: CONSTITUTIONAL: Denies fever, chills, or sweats. EYES: Denies visual changes, redness, or discharge. ENT: Denies rhinorrhea, congestion, sore throat, or otalgia. CARDIOVASCULAR: Denies chest pain, palpitations, or edema. RESPIRATORY: Denies cough or dyspnea. GASTROINTESTINAL: Denies abdominal pain, nausea, vomiting, or diarrhea. GENITOURINARY: Denies dysuria or hematuria. SKIN: Positive for rash and itching. MUSCULOSKELETAL: Denies back pain, joint pain, or myalgia. NEUROLOGIC: Denies headache, numbness, or weakness. PSYCHIATRIC: Denies anxiety or depression. All other systems reviewed are negative, except as documented in HPI. [facility] Past Medical History Medical History Subclinical hypothyroidism Vitamin D deficiency BPH (benign prostatic hyperplasia) COVID-19 virus infection December 2019 Hypogonadism Dyslipidemia Erectile dysfunction EDIE (obstructive sleep apnea) Prediabetes Testicular hypofunction GERD (gastroesophageal reflux disease) Sleep apnea Surgical History Surgical History History of esophageal dilatation 2009 Family History Family History Other Carcinoma of colon Family history of coronary artery disease Social History Social History Smoking packs per day: 2 Smoking cigarettes per day: 40.0 Years smoked: 50 Smoking pack-years: 100.00 Smoking status: Current every day smoker Tobacco type: cigarettes Second hand tobacco smoke exposure: No Alcohol intake: current Drinks per week: 12 Alcohol use details: 8-10 beers a week Substance use: never Substance use type: does not use Lack of Transportation: No Lack of Food: Never True Current Housing: I Have Housing Concerned About Future Housing: No Difficulty Paying Gas/Electric Bills: No Difficulty Paying for Meds: No Currently Unemployed: No Education: High School Diploma/GED Difficulty w/ Childcare or Family Care: No Living arrangements: alone Occupation/Education: occupation Additional occupation/education comments: Self-Employed Gender identity (if verbalized by the patient): Male Spiritual care concerns: No Agree to blood products: Yes Comments At the time of my signature, I reviewed and agree with the nursing past medical, surgical, social, and family history. There is no relevant family history pertinent to the patient complaint. Exam Narrative: GENERAL: This is a well-nourished, well-developed adult, in no apparent distress. They are non ill-appearing, nontoxic appearing. HEAD: normocephalic, atraumatic. EYES: Sclera clear/white. Conjunctiva normal. Vision is grossly intact. Extraocular movements intact. Pupils PERRLA. Upper and lower eyelids are edematous. EARS: External ears normal, auditory canals clear and without drainage, TMs normal without perforation. Hearing grossly intact. NOSE: External nose normal with no obvious nasal discharge, nasal turbinates without redness, no rhinorrhea. THROAT: Mucous membranes moist, posterior pharynx clear, without erythema or swelling. Uvula midline. NECK: Neck supple, non-tender without lymphadenopathy, masses or thyromegaly. CARDIOVASCULAR: Regular rate and rhythm without murmurs, gallops, or rubs. RESPIRATORY: Clear to auscultation. Breath sounds equal bilaterally. No wheezes, rales, or rhonchi. SKIN: Macular papular pruritic rash scattered throughout the patient's face around his bilateral eyes into his lower back and groin. No area of fluctuance, no induration, no exudate. NEURO: awake, alert, and oriented to person, place and time. There were no obvious focal neurologic abnormalities. EXTREMITIES: No joint tenderness, effusion, or edema noted. Course Course Emergency Course: Portions of this record may have been created with voice recognition software Level of Care: Express Care Visit Vital Signs Vital signs: Vital Signs Temperature 97.6 F 05/27/25 15:55 Pulse Rate 68 05/27/25 15:55 Respiratory Rate 16 05/27/25 15:55 Blood Pressure 124/66 05/27/25 15:55 Pulse Oximetry 99 05/27/25 15:55 Oxygen Delivery Room Air 05/27/25 15:55 Temperature 97.6 F 05/27/25 15:55 Pulse Rate 68 05/27/25 15:55 Respiratory Rate 16 05/27/25 15:55 Blood Pressure 124/66 05/27/25 15:55 Pulse Oximetry 99 05/27/25 15:55 Oxygen Delivery Room Air 05/27/25 15:55 Reviewed MDM - Skin/Abscess/Foreign Bdy MDM Narrative Medical decision making narrative: Patient likely has a contact dermatitis likely from a poisonous on the property. Patient given a shot of methylprednisolone will start prednisone tomorrow. Discussed physical exam findings. Advised supportive measures and signs/symptoms to go to the ER. Pt is appropriate for outpt treatment and f/u. Differential Diagnosis Differential diagnosis: Likely cellulitis, eczema, contact dermatitis and other (Poison dinora, poison oak, poison sumac) Critical Care Time Critical Care Time Critical Care Time: No Discharge Plan Discharge Clinical Impression: Contact dermatitis Qualifiers: Contact dermatitis type: unspecified Contact dermatitis trigger: unspecified trigger Qualified Code(s): L25.9 - Unspecified contact dermatitis, unspecified cause Patient Disposition: Home Condition: Stable Instructions: Contact Dermatitis (ED) Additional Instructions: Start the prednisone tomorrow. Take the prednisone as directed. Take it in the morning and take it with food. You may use calamine lotion, camphor,, Benadryl cream as needed for itchiness symptoms. You may also take Zyrtec or Claritin as needed for allergy or itchiness symptoms. Follow-up PCP in 3-5 days. If you develop any worsening redness, swelling, green or yellow discharge, fevers, breathing problems, nausea, vomiting, or any other concerns please go to the ER immediately. Patient Language: Yi Prescriptions: New prednisone 20 mg tablet 40 mg PO DAILY 5 Days Qty: 10 0RF No Action cholecalciferol (vitamin D3) 50 mcg (2,000 unit) tablet 50 mcg PO DAILY Qty: 90 2RF prednisone 10 mg tablet See Rx Instructions PO DAILY Qty: 41 0RF Rx Instructions: Take 5 tabs x 2 days, 4 tabs x 3 days, 3 tabs x 3 days, 2 tabs x 3 days, 1 tab x 3 days, 1/2 tab x 2 days PO daily; Follow-up/Referrals: Mare Sandy MD [Primary Care Provider] - Time of Disposition: 16:08
== END 2025-05-27 16:20 | disposition home or self-care (01) ==
PROVIDERS: PCP Family Medicine
DX: L25.9 Unspecified contact dermatitis, unspecified cause (principal); E78.5 Hyperlipidemia, unspecified; F17.210 Nicotine dependence, cigarettes, uncomplicated
CPT/HCPCS: 96372; 99213; G0463; J2919

== ENCOUNTER 2025-08-02 14:59 | Outpatient (CLI) | payer OTHER, SELFPAY ==
--- NOTE | ~2025-08-02 | CT_ITS ---
EXAMINATION:CT lung screening DATE: 08/02/2025 15:13 INDICATION: Personal history of nicotine dependence. TECHNIQUE: Computed tomography (CT) of the chest was performed without intravenous contrast. Automated exposure control and iterative reconstruction technique were employed. The dose-length product (DLP) was 173.20 mGy-cm. COMPARISON: Chest CT 05/17/2024 FINDINGS: There is a cluster of nodules measuring up to 3 mm in right middle lobe, likely infection. There is a cluster of nodules measuring up to 3 mm in right upper lobe, likely infection. There are a few other scattered nodules in the lungs measuring up to 3 mm. No pleural effusion. The heart size is normal. There are coronary artery calcifications. No pericardial effusion. There is severe cervical and thoracic spondylosis. IMPRESSION: 1. Lung-RADS category 2: Benign appearance or behavior. Continue annual screening with noncontrast low-dose chest CT in 12 months. Reviewed, dictated and finalized at location E. IMPRESSION: 1. Lung-RADS category 2: Benign appearance or behavior. Continue annual screeni ng with noncontrast low-dose chest CT in 12 months.
--- OUTSIDE RECORDS SUMMARY | 2025-08-02 15:03 | XMS_ITS | Clinical Summary ---
Author Organization [facility] Address [address], [address] [address] Phone Care Team Providers Care Assisted Living Housekeeper Name Role Phone Eulalio Villavicencio DO Unavailable [phone] Afshin Sandy MD Primary Care Provider Allergies No known active allergies Medications fluticasone (FLOVENT HFA) 220 MCG/ACT Aerosol BID Swallow, do not inhale; nothing to drink for 30 minutes after. 1 Inhaler 0 07/08/2016 Active atorvastatin (LIPITOR) 20 MG Tablet Take 1 Tab by mouth daily. 0 09/14/2016 Active vardenafil (LEVITRA) 2.5 MG Tablet Take 2.5 mg by mouth as needed. Active omeprazole (PRILOSEC) 40 MG CAPSULE DELAYED RELEASE TAKE 1 CAPSULE BY MOUTH DAILY 90 Cap 3 05/18/2019 Active Family History Medical History Relation Name Comments Cancer Brother Heart Attack Father Heart Disease Father Dementia Mother Relation Name Status Comments Brother Father Mother Social History Tobacco Use Types Packs/Day Years Used Date Smoking Tobacco: Every Day Cigarettes 3 40 Smokeless Tobacco: Never Tobacco Cessation:Ready to Q uit: No; Counseling Given: No Alcohol Use Standard Drinks/Week Comments Yes 12 (1 standard drink = 0.6 oz pu re alcohol) Sex and Gender Information Value Date Recorded Sex Assigned at Not on file Legal Sex Male 12:37 AM CDT Gender Identity Not on file Sexual Orientation Not on file Plan of Treatment Health Maintenance Due Date Last Done Comments Hepatitis C Virus (HCV) Screening 1962 TdaP Immunization 1962 Cologuard 2007 Immunochemical Fecal Occult Blood 2007 Pneumococcal Immunization (5 0+ years) (1 of 1 - PCV) 02/28/2012 Zoster Immunization (1 of 2) 02/28/2012 Influenza Immunization (#1) 2025 SARS-COV-2 Immunization ( - season) 2025 Colonoscopy 01/22/2031 01/22/2021, 02/11/2010 Colorectal Cancer Screening 01/22/2031 Respiratory Syncytial Virus (RSV) Immunization (Adult) (1 - 1-dose 75+ series) 2037 Hepatitis B Immunization Aged Out No longer eligible based on patient's age to complete this topic Human Papillomavirus (HPV) Immunization Aged Out No longer eligible b ased on patient's age to complete this topic Meningococcal Immunization (ACWY) Aged Out No longer eligible b ased on patient's age to complete this topic Rotavirus Immunization Aged Out No lo nger eligible based on patient's age to complete this topic Procedures Procedure Name Priority Date/Time Associated Diagnosis Comments COLONOSCOPY Routine 01/22/2021 from Last 3 Months or Most Recently Relevant to Health Maintenance Results * HM COLONOSCOPY (01/22/2021) Eulalio Villavicencio DO PROCEDURE/MINOR SURGICAL ORDERA BLES Final Result from Last 3 Months or Most Recently Relevant to Health Maintenance Care Teams Assisted Living Housekeeper Relationship Specialty Start Date End Date Afshin Sandy MD PCP - General Family Medicine 11/12/20 Eulalio Villavicencio DO Consulting Physician Gastroenterology 06/24/16
--- OUTSIDE RECORDS SUMMARY | 2025-08-02 15:03 | XMS_ITS | Clinical Summary ---
Author Organization [facility] Kelly dean Taid[facility] Address [address] [place] [address] Care Team Providers Care Swatch Folder Name Role Phone Afshin Sandy MD Primary Care Provider Allergies No known active allergies Medications atorvastatin (LIPITOR) 10 mg tablet TAKE 1 TABLET BY MOUTH EVERY DAY AT BEDTIME 10/06/2022 Active cholecalciferol 1,250 mcg (50,000 unit) Capsule TAKE 1 CAPSULE BY MOUTH ONCE WEEKLY. 10/06/2022 Active cyanocobalamin, vitamin B-12, 1,000 mcg Lozenge DISSOLVE 1 TABLET ON THE TONGUE ONCE DAILY. 10/06/2022 Active fenofibrate (LOFIBRA) 160 mg Tablet Take 160 mg by mouth daily. 10/06/2022 Active tamsulosin (FLOMAX) 0.4 mg capsule TAKE 1 CAPSULE BY MOUTH EVERY DAY AT BEDTIME 09/29/2022 Active Active Problems No known active problems Family History Medical History Relation Name Comments Cancer Brother 1 No Known Problems Brother 2 Heart Disease Father Dementia Mother No Known Problems Son 1 No Known Problems Son 2 Relation Name Status Comments Brother 1 Alive Brother 2 Alive Father Mother Son 1 Son 2 Alive Social History Tobacco Use Types Packs/Day Years Used Date Smoking Tobacco: Every Day Cigarettes Smokeless Tobacco: Never Tobacco Cessation:Ready to Q uit: Not Asked; Counseling Given: Not Answered Alcohol Use Standard Drinks/Week Comments Yes 0 (1 standard drink = 0.6 oz pure alcohol) 8-10 beers every couple of days Sex and Gender Information Value Date Recorded Sex Assigned at Not on file Legal Sex Male 1:19 PM WATER POLLUTION CONTROL TECHNICIAN Gender Identity Not on file Sexual Orientation Not on file Last Filed Vital Signs Vital Sign Reading Time Taken Comments Blood Pressure 125/58 10/27/2022 12:55 PM WATER POLLUTION CONTROL TECHNICIAN Pulse 73 10/27/2022 12:55 PM WATER POLLUTION CONTROL TECHNICIAN Temperature 36.7 C (98.1 F) 10/27/2022 12:55 PM WATER POLLUTION CONTROL TECHNICIAN Respiratory Rate 16 10/27/2022 12:55 PM WATER POLLUTION CONTROL TECHNICIAN Oxygen Saturation 98% 10/27/2022 12:55 PM WATER POLLUTION CONTROL TECHNICIAN Inhaled Oxygen Concentration - - Weight 100 kg (220 lb 8 oz) 10/27/2022 12:55 PM WATER POLLUTION CONTROL TECHNICIAN Height 180.3 cm (5' 11) 10/27/2022 12:55 PM WATER POLLUTION CONTROL TECHNICIAN Body Mass Index 30.75 10/27/2022 12:55 PM WATER POLLUTION CONTROL TECHNICIAN Plan of Treatment Health Maintenance Due Date Last Done Comments DTAP/TDAP/TD VACCINES (1 - Tdap) 1981 COLORECTAL SCREENING 2007 Colorectal Cancer Screening 2007 FIT-DNA Q 3 years 2007 FIT/FOBT Q 1 year 2007 Flex Sig/CT Colonography Q 5 years 2007 ZOSTER VACCINE (1 of 2) 02/28/2012 INFLUENZA VACCINE (#1) 2025 RSV VACCINE (60+ or ) (1 - 1-dose 75+ series) 2037 Insurance [employer] [facility] [id number] Care Teams Swatch Folder Relationship Specialty Start Date End Date Afshin Sandy MD [address] [place] [address] PCP - General Family Practice 10/28/22
== END 2025-08-02 15:00 | disposition home or self-care (01) ==
PROVIDERS: PCP Family Medicine; Visit Provider Family Medicine
DX: Z12.2 Encounter for screening for malignant neoplasm of respiratory organs (principal); Z87.891 Personal history of nicotine dependence
CPT/HCPCS: 71271

== ENCOUNTER 2025-08-22 13:14 | Outpatient (CLI) | payer OTHER, SELFPAY ==
--- NOTE | ~2025-08-22 | XR_ITS ---
EXAMINATION: SACRUM/COCCYX DATE: 08/22/2025 13:33 INDICATION: Pain in the coccyx region for a weeks. TECHNIQUE: Three views sacrum/coccyx FINDINGS: No prior studies for comparison. There is no displaced fracture of the sacrum. There is angulation of the coccyx with cortical discontinuity, consistent with fracture. No significant displacement. IMPRESSION: 1. No acute displaced osseous abnormality of the sacrum. Suspicion for occult or nondisplaced sacral fracture can either be evaluated with CT or MRI. 2: Age-indeterminate fracture of the coccyx. Reviewed, dictated and finalized at location O.
--- OUTSIDE RECORDS SUMMARY | 2025-08-22 14:09 | XMS_ITS | Clinical Summary ---
Author Organization [facility] Address [address], [address] [address] Phone Care Team Providers Care Garment Parts Cutter Hand Name Role Phone Eulalio Villavicencio DO Unavailable [phone] Afshin Sandy MD Primary Care Provider [...] Recently Relevant to Health Maintenance Care Teams Garment Parts Cutter Hand Relationship Specialty Start Date End Date Afshin Sandy MD PCP - General Family Medicine 11/12/20 Eulalio Villavicencio DO Consulting Physician Gastroenterology 06/24/16
--- OUTSIDE RECORDS SUMMARY | 2025-08-22 14:09 | XMS_ITS | Clinical Summary ---
Author Organization [facility] Kelly dean Taideng Address [address] [place] [address] Care Team Providers Care Outreach Professional Name Role Phone Afshin Sandy MD Primary [...] on file Legal Sex Male 1:19 PM MULTIMEDIA DEVELOPER Gender Identity Not on file Sexual Orientation Not on file Last Filed Vital Signs Vital Sign Reading Time Taken Comments Blood Pressure 125/58 10/27/2022 12:55 PM MULTIMEDIA DEVELOPER Pulse 73 10/27/2022 12:55 PM MULTIMEDIA DEVELOPER Temperature 36.7 C (98.1 F) 10/27/2022 12:55 PM MULTIMEDIA DEVELOPER Respiratory Rate 16 10/27/2022 12:55 PM MULTIMEDIA DEVELOPER Oxygen Saturation 98% 10/27/2022 12:55 PM MULTIMEDIA DEVELOPER Inhaled Oxygen Concentration - - Weight 100 kg (220 lb 8 oz) 10/27/2022 12:55 PM MULTIMEDIA DEVELOPER Height 180.3 cm (5' 11) 10/27/2022 12:55 PM MULTIMEDIA DEVELOPER Body Mass Index 30.75 10/27/2022 12:55 PM MULTIMEDIA DEVELOPER Plan of Treatment Health Maintenance Due Date Last Done Comments DTAP/TDAP/TD VACCINES (1 - Tdap) 1981 COLORECTAL SCREENING 2007 Colorectal Cancer Screening 2007 FIT-DNA Q 3 years 2007 FIT/FOBT Q 1 year 2007 Flex Sig/CT Colonography Q 5 years 2007 ZOSTER VACCINE (1 of 2) 02/28/2012 INFLUENZA VACCINE (#1) 2025 RSV VACCINE (60+ or ) (1 - 1-dose 75+ series) 2037 Insurance [employer] [facility] [id number] Care Teams Outreach Professional Relationship Specialty Start Date End Date Afshin Sandy MD [address] [place] [address] PCP - General Family Practice 10/28/22
== END 2025-08-22 13:15 | disposition home or self-care (01) ==
PROVIDERS: PCP Family Medicine; Visit Provider Family Medicine
DX: M53.3 Sacrococcygeal disorders, not elsewhere classified (principal)
CPT/HCPCS: 72220